=== PATIENT | male | born 1945 | race Caucasian/White ===

== ENCOUNTER 2018-02-03 15:21 | Emergency (ER) | payer MEDICARE, OTHER ==
[~2018-02-03] VITALS: Ht 167.6 cm; Wt 68.2 kg
[2018-02-03 15:23] VITALS: TEMP 98.6
[2018-02-03 16:08] LABS: COLLECTION METHOD CATHETER
[2018-02-03 16:15] LABS: PH 6 (5-8); SQUAMOUS EPITHELIAL None Seen /hpf; URINE APPEARANCE Clear; URINE BACTERIA Rare /hpf; URINE BILIRUBIN Negative (NEGATIVE); URINE BLOOD 3+ (NEGATIVE); URINE COLOR Straw; URINE GLUCOSE Negative (NEGATIVE); URINE KETONE Negative (NEGATIVE); URINE LEUKOCYTE ESTERASE Negative (NEGATIVE); URINE NITRATE Negative (NEGATIVE); URINE PROTEIN(semi-quant) Negative (NEGATIVE); URINE RBC 0-2 /hpf; URINE UROBILINOGEN Negative (NEGATIVE)
[2018-02-03] MEDS ORDERED: DULCOLAX STOOL100 MG PO (16:42)
[2018-02-03] MEDS ORDERED: FOLIC ACID 11 MG/TA1 PO (16:43)
[2018-02-03] MEDS ORDERED: LASIX 40MG TABL40 MG PO (16:43)
[2018-02-03] MEDS ORDERED: SINEQUAN 1010 MG/CAP PO (16:43)
[2018-02-03] MEDS ORDERED: NORCO 325 MG-51 TAB PO (16:44)
[2018-02-03] MEDS ORDERED: MILK OF MA400 MG/52 (16:45)
[2018-02-03] MEDS ORDERED: LEVBID0.375 MG (16:45)
[2018-02-03] MEDS ORDERED: MULTI VITAMINS1 TAB PO (16:46)
[2018-02-03] MEDS ORDERED: MIRALAX PA17 GM/Dose PO (16:47)
[2018-02-03] MEDS ORDERED: PRIL40 PO (16:47)
[2018-02-03] MEDS ORDERED: XARELTO10 MG PO (16:48)
[2018-02-03] MEDS ORDERED: FLOMAX 0.40.4 MG/CAP PO (16:48)
[2018-02-03] MEDS ORDERED: INDERAL 10MG10 MG PO (16:48)
[2018-02-03] MEDS ORDERED: NATURE'S BLEND100 M2 PO (16:49)
[2018-02-03 18:50] VITALS: BP 107/54; PULSE 70
== END 2018-02-03 18:52 | disposition home or self-care (01) ==
LOC: COL.ER 15:21
PROVIDERS: Emergency Medicine
DX: K40.90 Unilateral inguinal hernia, without obstruction or gangrene, not specified as recurrent (principal); S72.92XD Unspecified fracture of left femur, subsequent encounter for closed fracture with routine healing; Z79.899 Other long term (current) drug therapy; W18.30XD Fall on same level, unspecified, subsequent encounter

== ENCOUNTER 2018-07-22 13:12 | Emergency (ER) | payer MEDICARE, OTHER ==
[~2018-07-22] VITALS: Ht 167.6 cm; Wt 73.0 kg
[~2018-07-22 13:12] MED LIST: DULCOLAX STOOL100 MG PO; FLOMAX 0.40.4 MG/CAP PO; FOLIC ACID 11 MG/TA1 PO; INDERAL 10MG10 MG PO; LASIX 40MG TABL40 MG PO; LEVBID0.375 MG; MILK OF MA400 MG/52; MIRALAX PA17 GM/Dose PO; MULTI VITAMINS1 TAB PO; NATURE'S BLEND100 M2 PO; NORCO 325 MG-51 TAB PO; PRIL40 PO; SINEQUAN 1010 MG/CAP PO; XARELTO10 MG PO
[2018-07-22 13:24] VITALS: TEMP 97.5
[2018-07-22 15:25] LABS: COLLECTION METHOD CLEAN CATCH
[2018-07-22 15:37] LABS: PH 7 (5-8); SQUAMOUS EPITHELIAL None Seen /hpf; URINE APPEARANCE Clear; URINE BACTERIA None Seen /hpf; URINE BILIRUBIN Negative (NEGATIVE); URINE BLOOD Negative (NEGATIVE); URINE COLOR Colorless; URINE GLUCOSE Negative (NEGATIVE); URINE KETONE Negative (NEGATIVE); URINE LEUKOCYTE ESTERASE Negative (NEGATIVE); URINE NITRATE Negative (NEGATIVE); URINE PROTEIN(semi-quant) Negative (NEGATIVE); URINE RBC None Seen /hpf; URINE UROBILINOGEN Negative (NEGATIVE)
[2018-07-22 16:06] VITALS: BP 122/62; PULSE 67
== END 2018-07-22 16:06 | disposition home or self-care (01) ==
LOC: COL.ER 13:12
PROVIDERS: Emergency Medicine
DX: K40.90 Unilateral inguinal hernia, without obstruction or gangrene, not specified as recurrent (principal); I10 Essential (primary) hypertension; Z90.89 Acquired absence of other organs

== ENCOUNTER 2019-11-18 10:48 | Day surgery (SDC) | payer MEDICARE, OTHER ==
[2019-11-18] VITALS (10 sets, daily range): BP systolic 123–138; BP diastolic 52–74; PULSE 55–78; TEMP 97.5–98.7
[~2019-11-18] VITALS: Ht 165.1 cm; Wt 73.0 kg
--- NOTE | 2019-11-18 11:19 | NUR ---
Patient has allergies listed on the H+P to aspirin, ibuprofen, naproxen, and lodine. The patient denies any known drug allergies. This RN contacts his spouse as well and she states the patient has NKDA.
[2019-11-18] MEDS ORDERED: LASIX 40MG TABL40 MG PO (11:21)
[2019-11-18] MEDS ORDERED: LACTULOSE10 GM/153 PO (11:21)
[2019-11-18] MEDS ORDERED: INDERAL 10MG10 MG PO (11:21)
[2019-11-18] MEDS ORDERED: VITAMIN A10k PO (11:22)
[2019-11-18] MEDS ORDERED: SINEQUAN 1010 MG/CAP PO (11:22)
[2019-11-18] MEDS ORDERED: PRIL40 PO (11:22)
[2019-11-18 11:54] LABS: INR 1.4 (0.8-3.0)
[2019-11-18 11:57] LABS: BASO # 0.1 (0.0-0.2); BASO % 2.2 % (0.0-2.0); EOS # 0.5 (0.0-0.7); EOS % 11.2 % (0-4.0); GRAN # 1.5 (1.4-6.5); HEMATOCRIT 37.4 % (42.0-52.0); HEMOGLOBIN 12.5 g/dl (13.5-18.0); LYMPH # 1.8 (1.2-3.4); LYMPH % 38.1 % (20.0-51.0); MEAN CELL VOLUME 93 fl (80.0-100.0); MEAN CORPUSCULAR HEMOGLOBIN 31 pg (27.0-31.0); MEAN CORPUSCULAR HGB CONC 33 g/dl (33.0-37.0); MEAN PLATELET VOLUME 9.7 fl (7.4-10.4); MONO # 0.7 (0.1-0.6); MONO % 15.3 % (1.7-9.3); PLATELET COUNT 199 K/mm3 (130-400); RED BLOOD COUNT 4.03 M/mm3 (4.20-5.60); REDCELL DISTRIBUTION WIDTH-CV 18.5 % (11.5-14.5)
[2019-11-18 12:00] LABS: ALBUMIN 3.4 gm/dL (3.5-5.0); BILIRUBIN,TOTAL 2.9 mg/dL (0.0-1.0); CALCIUM 8.7 mg/dL (8.4-10.2); CREATININE, serum 0.61 (0.66-1.25); POTASSIUM 4.1 mmol/L (3.4-5.0); TOTAL PROTEIN 7.4 gm/dL (6.4-8.2)
--- NOTE | 2019-11-18 12:35 | NUR ---
Dr. South aware of patient's pre-op lab results. Patient to the OR at this time with Giovana Schmitt RN.
--- NOTE | 2019-11-18 14:33 | NUR ---
Patient to room 331 post op hernia repair. Abdomen soft, non distended, minimal tenderness with palpation. Lap sites with edges well approximated, no redness or drainage noted. Post op exercises reviewed with patient. No c/o at this time.
--- NOTE | 2019-11-18 22:21 | NUR ---
PT RESTING IN BED, UPSET RE; LACTULOSE DOSE AT SPECIFIED TIME. MED TAKEN TO ROOM. VSS, TO DENIES ANY PAIN. ABLE TO DEESCALATE SITUATION WITH PT IN ROOM. WILL UPDATE PROVIDERS NEEDED.
[2019-11-19 05:07] VITALS: BP 90/47; PULSE 58; TEMP 97.8
[2019-11-19 07:25] VITALS: BP 106/47; PULSE 54; TEMP 98
--- NOTE | 2019-11-19 08:30 | NUR ---
Patient alert and oriented, answers questions appropriately. See assessment. Abdomen soft, non tender, non distended. Bowel sounds active x4 quads. +Flatus. +Bowel movement. Lap sites with edges well approximated, no redness or drainage noted. No c/o pain or discomfort. Post op exercises reviewed with patient.
[2019-11-19 11:02] VITALS: BP 111/54; PULSE 73; TEMP 98.2
--- NOTE | 2019-11-19 11:21 | NUR ---
First visit from the blender. No needs right now.
--- NOTE | 2019-11-19 13:26 | NUR ---
Discharge instructions reviewed with patient, verbalized understanding. Discharged via wheelchair to auto/home with family at 1325.
== END 2019-11-19 13:25 | disposition home or self-care (01) ==
LOC: SDCO 10:48 → JCC 14:32 → SDCO 11-19 13:25
PROVIDERS: Surgery
DX: K40.90 Unilateral inguinal hernia, without obstruction or gangrene, not specified as recurrent (principal); E83.110 Hereditary hemochromatosis; Z79.01 Long term (current) use of anticoagulants; D69.6 Thrombocytopenia, unspecified; G25.81 Restless legs syndrome; F32.9 Major depressive disorder, single episode, unspecified; K58.9 Irritable bowel syndrome, unspecified; Z85.3 Personal history of malignant neoplasm of breast; Z88.6 Allergy status to analgesic agent; Z88.3 Allergy status to other anti-infective agents; Z88.8 Allergy status to other drugs, medicaments and biological substances
CPT/HCPCS: OP; C1781; J0690; J2704; J7030